=== PATIENT | male | born 1960 | race Caucasian/White ===

== ENCOUNTER 2016-07-09 20:54 | Emergency (ER) | payer MEDICAID ==
--- NOTE | ~2016-07-09 | CR72 ---
[facility] A Service of [facility] RADIOLOGY TEXT RESULTS PATIENT: SHRUTHI ROGERS LOCATION: SED : 60 UNIT #: [id number] AGE: [address]: Srini Muller MD SEX: M ORDER DR: [id number] [place] [id number] E MR#: [id number] Acc #: [id number] NAME: SHRUTHI ROGERS : 1960 SEX: M STUDY DATE/TIME: 07/09/2016 22:09 UNIT: SED ROOM: STUDY DESCRIPTION: CR Chest Single View Portable Attending Physician: Srini Muller M.D. Ordering Physician: Srini Muller M.D. Primary Care Physician: No Primary Care Physician MEDICAL IMAGING REPORT This report is preliminary unless electronic signature is present. EXAM AP portable chest DATE 07/09/2016 HISTORY Right side rib pain after falling tonight. Left-side body numbness. Blurred vision since 4:30 a.m. COMPARISON None FINDINGS No acute displaced right or left rib fractures identified. There is mild asymmetric elevation of the right hemidiaphragm. Calcified granuloma is present in the left lower lobe. Mild cardiomegaly. IMPRESSION 1. No acute chest findings. 2. Mild cardiomegaly. 3. Benign calcified granulomatous changes. Dictated by... Alvina Richey M.D. THIS IS AN ELECTRONICALLY VERIFIED REPORT Alvina Richey M.D. at 07/11/2016 8:30 AM [facility]/maurilio [facility] A Service of [facility] RADIOLOGY TEXT RESULTS PATIENT: SHRUTHI ROGERS LOCATION: SED : 60 UNIT #: [id number] AGE: [address]: Srini Muller MD SEX: M ORDER DR: TD: 07/10/2016 10:17 JOB #: [id number] MEDICAL IMAGING REPORT Page 1 of 1
--- NOTE | ~2016-07-09 | CT23 ---
[facility] A Service of [facility] & [facility] RADIOLOGY TEXT RESULTS PATIENT: SHRUTHI ROGERS LOCATION: SED : 60 UNIT #: [id number] AGE: [address]: Srini Muller MD SEX: M ORDER DR: [id number] [place] [id number] E MR#: [id number] Acc #: [id number] NAME: SHRUTHI ROGERS : 1960 SEX: M STUDY DATE/TIME: 07/09/2016 22:07 UNIT: SED ROOM: STUDY DESCRIPTION: CT Angio Neck Attending Physician: Srini Muller M.D. Ordering Physician: Srini Muller M.D. Primary Care Physician: Primary Care Physician No MEDICAL IMAGING REPORT This report is preliminary unless electronic signature is present. EXAM CT angiogram of the neck HISTORY FINDINGS Please see CT angiogram of the head for results. Dictated by... Stuart Barron M.D. THIS IS AN ELECTRONICALLY VERIFIED REPORT Stuart Barron M.D. at 07/10/2016 4:33 PM Jorge TD: 07/10/2016 11:05 JOB #: [id number] MEDICAL IMAGING REPORT Page 1 of 1
--- NOTE | ~2016-07-09 | EKG ---
PATIENT: SHRUTHI ROGERS UNIT #: [id number] Ventricular Rate: 108 BPM Atrial Rate: 108 BPM P-R Interval: 154 ms QRS Duration: 86 ms Q-T Interval: 340 ms QTC Calculation(Bezet): 455 ms P [place]: 56 degrees Calculated R [place]: 3 degrees Calculated T [place]: 77 degrees Diagnosis Line: Sinus tachycardia Diagnosis Line: Possible Anterior infarct , age undetermined Diagnosis Line: Abnormal ECG Diagnosis Line: No previous ECGs available Diagnosis Line: Confirmed by MAYA SPRINGER MD ([id number]) on Diagnosis Line: 07/10/2016 7:12:17 PM INTERPRETING MD: RACHEAL CARVER
--- NOTE | ~2016-07-09 | CT71 ---
[facility] A Service of [facility] & [facility] RADIOLOGY TEXT RESULTS PATIENT: SHRUTHI ROGERS LOCATION: SED : 60 UNIT #: [id number] AGE: [address]: Srini Muller MD SEX: M ORDER DR: [id number] [place] [id number] E MR#: [id number] Acc #: [id number] NAME: SHRUTHI ROGERS : 1960 SEX: M STUDY DATE/TIME: 07/09/2016 22:00 UNIT: SED ROOM: STUDY DESCRIPTION: CT Head Wo Contrast Attending Physician: Srini Muller M.D. Ordering Physician: Srini Muller M.D. Primary Care Physician: No Primary Care Physician MEDICAL IMAGING REPORT This report is preliminary unless electronic signature is present. EXAM Head CT without. HISTORY Focal neurologic deficit, left-sided face numbness with blurred vision since 4:30 a.m. on July 09. Patient feels woozy. Patient fell in the shower and has left eye drooping and right rib pain. No cancer history. TECHNIQUE Routine noncontrast head CT is reviewed. This CT exam was performed with one or more of the following radiation dose reduction techniques: automatic exposure control, adjustment of mA and/or kV according to patient size, and iterative reconstruction. COMPARISON There is no comparison. FINDINGS The mastoid air cells are clear. The visualized paranasal sinuses are clear. There is no evidence for acute intracranial hemorrhage or extraaxial fluid collection. 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 There is no CT evidence for an acute cortical infarct but if this is the clinical concern, followup imaging is suggested preferably with MRI if the patient is a candidate. Patient has had cataract surgery on the right. The basilar cisterns are patent. There is no intracranial mass effect. IMPRESSION 1. There is no evidence for acute intracranial abnormality but if there is clinical concern for acute CVA followup imaging is recommended, [facility] A Service of [facility] RADIOLOGY TEXT RESULTS PATIENT: SHRUTHI ROGERS LOCATION: SED : 60 UNIT #: [id number] AGE: [address]: Srini Muller MD SEX: M ORDER DR: preferably with MRI if the patient is candidate. 2. 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 Please correlate for risk factors for small vessel disease. Dictated by... Erlinda Mckay M.D. THIS IS AN ELECTRONICALLY VERIFIED REPORT Erlinda Mckay M.D. at 07/10/2016 2:27 PM [facility]/james TD: 07/10/2016 09:23 JOB #: [id number] MEDICAL IMAGING REPORT Page 1 of 1
--- NOTE | ~2016-07-09 | CT17 ---
[facility] A Service of [facility] & [facility] RADIOLOGY TEXT RESULTS PATIENT: SHRUTHI ROGERS LOCATION: SED : 60 UNIT #: [id number] AGE: [address]: Srini Muller MD SEX: M ORDER DR: [id number] [place] [id number] E MR#: [id number] Acc #: [id number] NAME: SHRUTHI ROGERS : 1960 SEX: M STUDY DATE/TIME: 07/09/2016 22:07 UNIT: SED ROOM: STUDY DESCRIPTION: CT Angio Head Attending Physician: Srini Muller M.D. Ordering Physician: Srini Muller M.D. Primary Care Physician: Primary Care Physician No MEDICAL IMAGING REPORT This report is preliminary unless electronic signature is present. EXAM CT scan of the head and neck with contrast with carotid CT angiography HISTORY Blurred vision with left-sided facial numbness beginning early in the morning prior to arrival. Additional history of falling in the shower. TECHNIQUE Thin section axial imaging was obtained from the mid mediastinum to the top of head with contrast. 80 mL of Isovue was used. CT angiography was performed with thick sliding MIPs, curved planar reformats and 3-D volumetric imaging with surface shaded volume shaded display. This CT exam was performed with one or more of the following radiation dose reduction techniques: automatic exposure control, adjustment of mA and/or kV according to patient size, and iterative reconstruction. FINDINGS Extravascular structures are remarkable for emphysema. The CT angiographic study shows no stenosis at the great vessel origins. There is mild soft plaque in the proximal left subclavian artery that narrows the lumen by approximately 25% to 30%. There is soft plaque at the left vertebral artery origin that narrows the lumen approximately 60% to 70%. The right vertebral is widely patent. Distally there is a small aneurysm of the left vertebral artery just before the basilar artery origin. The aneurysm is fusiform and does not involve the posterior-inferior cerebellar artery origin. It measures 3.5 mm in maximum diameter. The right vertebral artery is unremarkable. The basilar artery is widely patent. In the carotid circulation there is minimal plaque at both carotid bifurcations with no stenosis by NASCET criteria. The distal internal carotids up through the siphons are widely patent. [facility] A Service of [facility] RADIOLOGY TEXT RESULTS PATIENT: SHRUTHI ROGERS LOCATION: SED : 60 UNIT #: [id number] AGE: [address]: Srini Muller MD SEX: M ORDER DR: In the intracranial circulation there is a origin of the right posterior cerebral artery as a normal variant. There is no evidence of vascular malformation. There is no evidence of major branch vessel cutoff or significant intracranial stenosis. IMPRESSION 1. 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 2. 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 3. No evidence of significant carotid bifurcation disease on either side. 4. No intracranial branch vessel occlusive disease or severe stenosis is noted. Dictated by... Stuart Barron M.D. THIS IS AN ELECTRONICALLY VERIFIED REPORT Stuart Barron M.D. at 07/10/2016 4:33 PM Jorge TD: 07/10/2016 11:03 JOB #: [id number] MEDICAL IMAGING REPORT Page 1 of 1
[~2016-07-09 20:54] MED LIST: CLEOCIN HCL300 M1 PO; NO MEDICATIONS; PERCOCET5/325 PO
[2016-07-09 21:29] LABS: BASOPHIL# 0.1 X10e3 (0-0.3); BASOPHIL% 1.3 % (0-2.5); EOSINOPHIL# 0.1 X10e3 (0-0.7); HEMATOCRIT 44.1 % (38.0-50.0); HEMOGLOBIN 15.2 gm/dL (13.0-16.0); LYMPHOCYTE# 1.5 X10e3 (1.0-3.5); LYMPHOCYTE% 20.7 % (17.0-45.0); MEAN CELL VOLUME 96.3 FL (83-96); MEAN CORPUSCULAR HEMOGLOBIN 33.1 PG (28-34); MEAN CORPUSCULAR HGB CONC 34.4 g/dL (30-36); MEAN PLATELET VOLUME 8.3 FL (6.5-11.5); MONOCYTE# 0.6 X10e3 (0-1.0); MONOCYTE% 8.4 % (3.0-12.0); NEUTROPHIL# 4.9 X10e3 (1.5-7.1); NEUTROPHIL% 68.6 % (40-75); PLATELET COUNT 247 X10e3 (140-420); RED BLOOD COUNT 4.58 X10e (3.90-5.60); RED CELL DISTRIBUTION WIDTH 13.9 % (11.0-15.5); WHITE BLOOD COUNT 7.2 X10e3 (4.0-10.5)
[2016-07-09 21:30] LABS: DIFF IND NO
[2016-07-09 21:32] LABS: PROTHROMBIN TIME (PATIENT) 11.5 SECONDS (9.5-12.4)
[2016-07-09 21:38] LABS: URINE SOURCE CLEAN CATCH
[2016-07-09 21:40] LABS: URINE APPEARANCE TURBID; URINE BILIRUBIN NEG (NEG); URINE BLOOD TRACE-INTACT (NEG); URINE COLOR YELLOW; URINE GLUCOSE NEG (NORM); URINE KETONE NEG (NEG); URINE LEUKOCYTE ESTERASE 1+ (NEG); URINE NITRATE POS (NEG); URINE PROTEIN NEG (NEG); URINE UROBILINOGEN 0.2 MG/DL (NORM)
[2016-07-09 21:40] LABS: PARTIAL THROMBOPLASTIN TIME 28.1 SECONDS (25.6-38.1)
[2016-07-09 21:41] LABS: ALBUMIN SERUM 3.8 g/dL (3.5-5.0); BILIRUBIN, DIRECT 0.1 mg/dL (0.0-0.2); BILIRUBIN,INDIRECT 0.3 mg/dL (0.0-0.9); BILIRUBIN,TOTAL 0.4 mg/dL (0.2-2.0); BUN/CREATININE RATIO 11.66; CALCIUM SERUM 9.4 mg/dL (8.4-10.2); CREATININE SERUM 1.2 mg/dL (0.6-1.4); GLOM FILT RATE Estimated 67.7 mL/min (>60); POTASSIUM 3.8 mmol/L (3.5-5.1); PROTEIN TOTAL SERUM 8.2 g/dL (6.0-8.3)
[2016-07-09 21:42] LABS: MICRO INDICATED? YES
[2016-07-09 21:43] LABS: CULTURE INDICATED? YES; URINE BACTERIA 3+ (NEG); URINE SQUAMOUS EPITHELIAL CELL FEW /[HPF]
[2016-07-09 21:50] LABS: AMPHETAMINE POS (NEG); BARBITURATES NEG (NEG); BENZODIAZEPINES NEG (NEG); COCAINE NEG (NEG); MARIJUANA NEG (NEG); OPIATES NEG (NEG); TRICYCLIC ANTIDEPRESSANTS NEG (NEG); U METHADONE NEG (NEG)
[2016-07-09 21:51] LABS: POC - TROPONIN <0.05 ng/mL (<=0.05)
== END 2016-07-10 03:27 ==
LOC: SED 20:54
PROVIDERS: Emergency Medicine
DX: I63.9 Cerebral infarction, unspecified (principal); N39.0 Urinary tract infection, site not specified; F15.10 Other stimulant abuse, uncomplicated; F17.210 Nicotine dependence, cigarettes, uncomplicated
CPT/HCPCS: 70450; 70496; 70498; 71010; 80048; 80076; 80307; 81003; 82553; 84484; 85025; 85610; 85730; 87086; 87088; 87186; 93005; 96374; 99285; J0696; Q9967